=== PATIENT | female | born 1960 | race Caucasian/White ===

== ENCOUNTER → 2021-11-02 | Outpatient (CLI) | payer OTHER ==
[~2021-11-02] MED LIST: COZAAR50 MG PO; PRAVACHOL40 MG PO; SYNTHROID88 MCG PO; VITAMIN D250000 UNIT PO
== END ==
LOC: MAMO 08-24 15:00
DX: Z12.31 Encounter for screening mammogram for malignant neoplasm of breast (principal)
CPT/HCPCS: 77063; 77067